=== PATIENT | male | born 1965 | race Two or more races ===

== ENCOUNTER 2016-04-11 12:55 | Emergency (ER) | payer BC ==
[~2016-04-11] VITALS: Ht 160 cm; Wt 74.8 kg
[2016-04-11] MEDS ORDERED: NKM (13:34)
[2016-04-11 14:15] VITALS: BP 115/76
[2016-04-11] MEDS ORDERED: Mylanta II UD 30ml ORAL ONE (14:30)
[2016-04-11] MEDS ORDERED: Lidocaine 2% Visc 15ml soln ORAL ONE (14:30)
--- NOTE | 2016-04-11 14:41 | Emergency Room Report ---
History of Present Illness General Chief Complaint: Sore Throat Source: Patient Present Illness HPI 50-year-old male presents to emergency Department complaining of intermittent mid epigastric burning sensation up into his throat x3 days of left-sided ear pain. Patient denies nausea, vomiting, fevers, chills, chest pain or history of cardiac disease. Patient states that burning sensation in his throat is worse at nighttime when lying down or after drinking coffee. Patient reports previous history of acid reflux problems. he denies headache, abdominal pain, rashes, recent travel or ill contacts. Denies CP, Palpitations, LOC, AMS, dizziness, Changes in Vision, Sensation, paresthesias, or a sudden severe headache. Allergies: Coded Allergies: No Known Allergies (Unverified , 04/11/16) Patient History Past Medical History: see triage record Past Surgical History: none Pertinent Family History: none Immunizations: UTD Reviewed Nursing Documentation: PMH: Agreed, PSxH: Agreed Nursing Documentation-PMH Past Medical History: No Stated History Review of Systems All Other Systems: negative except mentioned in HPI Physical Exam Vital Signs Date Time Temp Pulse Resp B/P Pulse Ox O2 Delivery O2 Flow Rate FiO2 04/11/16 13:31 98.4 89 16 115/76 99 Room Air Sp02 EP Interpretation: reviewed, normal General Appearance: no apparent distress, alert, GCS 15, non-toxic Head: normocephalic, atraumatic Eyes: bilateral eye PERRL, bilateral eye normal inspection ENT: hearing grossly normal, normal pharynx, no angioedema, normal voice, uvula midline, moist mucus membranes, other - left ear cerumen impaction noted. Neck: full range of motion, supple/symm/no masses Respiratory: chest non-tender, lungs clear, normal breath sounds, no rhonchi, no respiratory distress, no wheezing, speaking full sentences Cardiovascular #1: regular rate, rhythm, no edema, normal capillary refill Gastrointestinal: normal bowel sounds, non tender, soft, no guarding, no rebound Rectal: deferred Genitourinary: normal inspection, no CVA tenderness Musculoskeletal: back normal, gait/station normal, normal range of motion, non- tender, no calf tenderness Neurologic: alert, oriented x3, responsive, motor strength/tone normal, sensory intact, speech normal Psychiatric: judgement/insight normal, memory normal, mood/affect normal, no suicidal/homicidal ideation Skin: normal color, no rash, warm/dry, well hydrated Lymphatic: no adenopathy Medical Decision Making PA Attestation Dr. Farmer is my supervising Physician whom patient management has been discussed with. Diagnostic Impression: Primary Impression: Acid reflux Qualified Codes: K21.0 - Gastro-esophageal reflux disease with esophagitis Additional Impression: Excessive cerumen in left ear canal ER Course 50-year-old male presents to emergency Department complaining of mid epigastric burning sensation up into his throat x3 days of left-sided ear pain. Patient denies nausea, vomiting, fevers, chills, chest pain or history of cardiac disease. Ddx considered but are not limited to: OE, OM, pharyngitis, strep, HVAC R TECH, angina , URI, GERD Vital signs: are WNL, pt. is afebrile H&PE are most consistent with: GERD symptoms, and left cerumen impaction. ORDERS: None required at this time as the diagnosis is clinical ED INTERVENTIONS: -150mg Zantac PO - GI Cocktail DISCHARGE: At this time pt. is stable for d/c to home. Will provide printed patient care instructions, and any necessary prescriptions. Care plan and follow up instructions have been discussed with the patient prior to discharge. Last Vital Signs Date Time Temp Pulse Resp B/P Pulse Ox O2 Delivery O2 Flow Rate FiO2 04/11/16 13:31 98.4 89 16 115/76 99 Room Air Disposition: HOME, SELF-CARE Condition: Stable Referrals: NOT CHOSEN IPA/MD,REFERRING (PCP) Patient Instructions: Food Choices for Gastroesophageal Reflux Disease, Adult, [id number], Gastroesophageal Reflux Disease, Adult, [id number] Additional Instructions: Take medications as directed. Follow up with PCP in 3 days Return sooner to ED if new symptoms occur, or current symptoms become worse. - Please note that this Emergency Department Report was dictated using [email or web address] software, occasionally this can lead to erroneous entry secondary to interpretation by the dictation equipment. Elise Gonzalez Apr 11, 2016 14:41
[2016-04-11] MEDS ORDERED: ZANTAC150 MG ORAL (14:58)
[2016-04-11] MEDS ORDERED: DEBROX15 M1 LEFT EAR (14:58)
[2016-04-11 15:06] VITALS: BP 115/76
== END 2016-04-11 15:06 | disposition home or self-care (01) ==
LOC: EMR 14:16
DX: K21.0 Gastro-esophageal reflux disease with esophagitis (principal); H61.22 Impacted cerumen, left ear
CPT/HCPCS: 99282